=== PATIENT | male | born 1955 | race Caucasian/White ===

== ENCOUNTER 2017-02-11 08:54 | Emergency (ER) | payer BC ==
[2017-02-11] MEDS ORDERED: GI Cocktail Oral Solution 30 ML PO ONE (09:49)
[2017-02-11] MEDS ORDERED: Sodium Chloride 0.9% 1,000 ML IV ONE (09:50)
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
[2017-02-11 10:18] VITALS: BP 124/68
[2017-02-11] MEDS ORDERED: Aspirin 81 MG Tab.Chew PO ONE (11:31)
== END 2017-02-11 11:17 | disposition home or self-care (01) ==
LOC: VM.ED 08:54
DX: K21.9 Gastro-esophageal reflux disease without esophagitis (principal); E78.00 Pure hypercholesterolemia, unspecified; I10 Essential (primary) hypertension; E11.9 Type 2 diabetes mellitus without complications; Z79.82 Long term (current) use of aspirin; Z79.84 Long term (current) use of oral hypoglycemic drugs; Z79.899 Other long term (current) drug therapy
CPT/HCPCS: 36415; 80053; 82550; 83880; 84484; 85025; 85610; 93005; 96360; 99285; A9270; J7030

== ENCOUNTER 2019-01-10 08:22 | Emergency (ER) | payer BC ==
--- NOTE | 2019-01-10 08:36 | EDM.PDOC ---
ED HPI GENERAL MEDICAL PROBLEM - General Chief Complaint: Abdominal Pain Stated Complaint: BACK PAIN Time Seen by Provider: 01/10/19 08:34 Source of Information: Reports: Patient, Family, Old Records, RN, RN Notes Reviewed History Limitations: Reports: No Limitations - History of Present Illness INITIAL COMMENTS - FREE TEXT/NARRATIVE: Patient presents to the ED at [facility] for the evaluation of LLQ abdominal pain. The patient states his pain originally started 3 days ago in his lower back. It has progressively moved to the LLQ and pain steadily got worse. No history of any abdominal problems. Denies any N/V/D. No blood in BM' s. States normal BM's daily. Denies any headaches or dizziness. Denies chest pain or SOB. Back pain has resolved. The pain is sharp and stabbing. No radiation. Tender with even light palpation. Bowel sounds are hypoactive. Left Lower Abdomen Pain Score (Numeric/FACES): 5 - Related Data Allergies Allergy/AdvReac Type Severity Reaction Status Date / Time No Known Allergies Allergy Verified 01/10/19 08:35 Home Meds: Home Meds Aspirin 81 mg PO DAILY 02/11/17 [History] Lisinopril [Prinivil] 20 mg PO DAILY 02/11/17 [History] Pravastatin Sodium 40 mg PO DAILY 02/11/17 [History] metFORMIN [Glucophage] 1,000 mg PO BID 02/11/17 [History] Ciprofloxacin HCl [Cipro] 500 mg PO Q12H 7 Days #14 tablet 01/10/19 [Rx] metroNIDAZOLE [Flagyl] 500 mg PO Q8H 7 Days #21 tab 01/10/19 [Rx] Past Medical History Cardiovascular History: Reports: High Cholesterol, Hypertension Endocrine/Metabolic History: Reports: Diabetes, Type II ED ROS GENERAL - Review of Systems Review Of Systems: See Below Constitutional: Denies: Fever, Chills Respiratory: Denies: Shortness of Breath, Cough Cardiovascular: Denies: Chest Pain, Palpitations GI/Abdominal: Reports: Abdominal Pain. Denies: Diarrhea, Nausea, Vomiting Skin: Reports: No Symptoms Neurological: Reports: No Symptoms ED EXAM, GI/ABD - Physical Exam Exam: See Below Exam Limited By: No Limitations General Appearance: Alert, No Apparent Distress Respiratory/Chest: No Respiratory Distress, Lungs Clear, Normal Breath Sounds Cardiovascular: Normal Peripheral Pulses, Regular Rate, Rhythm GI/Abdominal Exam: Soft, Tender (LLQ), Abnormal Bowel Sounds (Hypoactive x4) Neurological: Alert, Oriented Skin Exam: Warm, Dry, Intact, Normal Color Course - Vital Signs Last Recorded V/S: Last Vital Signs Temp 36.1 C 01/10/19 08:28 Pulse 83 01/10/19 08:28 Resp 18 01/10/19 08:28 BP 138/63 01/10/19 08:28 Pulse Ox 95 01/10/19 08:28 - Orders/Labs/Meds Orders: Active Orders 24 hr Category Date Time Status Sodium Chloride 0.9% [Normal Saline] 1,000 ml Med 01/10/19 09:52 Active IV ONETIME Sodium Chloride 0.9% [Saline Flush] Med 01/10/19 09:51 Active 10 ml FLUSH ASDIRECTED PRN Peripheral IV Insertion Adult [OM.PC] Routine Oth 01/10/19 09:51 Ordered Medication Orders Sodium Chloride (Normal Saline) 1,000 mls @ 999 mls/hr IV ONETIME ONE Stop: 01/10/19 10:52 Sodium Chloride (Saline Flush) 10 ml FLUSH ASDIRECTED PRN PRN Reason: Keep Vein Open Labs: Laboratory Tests 01/10/19 01/10/19 01/10/19 Range/Units 08:47 08:47 09:17 WBC 12.2 H (4.0-10.0) x10^3/uL RBC 4.68 (4.5-6.0) x10^6/uL Hgb 13.8 L (14.0-18.0) g/dL Hct 42.6 (40.0-52.0) % MCV 91.0 (78.0-93.0) fL MCH 29.5 (26.0-32.0) pg MCHC 32.4 (32.0-36.0) g/dL RDW Coeff of Dayne 13.7 (10.0-15.0) % Plt Count 182 (130-400) x10^3/uL Neut % (Auto) 80.5 H (50.0-80.0) % Lymph % (Auto) 9.4 L (25.0-50.0) % [place] % (Auto) 8.9 (2.0-11.0) % Eos % (Auto) 1.0 (0.0-4.0) % Baso % (Auto) 0.2 (0.2-1.2) % Sodium 140 (136-145) mmol/L Potassium 4.0 (3.5-5.1) mmol/L Chloride 104 (98-107) mmol/L Carbon Dioxide 25 (21-32) mmol/L Anion Gap 15.0 (10-20) mmol/L BUN 22 H (7-18) mg/dL Creatinine 1.4 H (0.70-1.30) mg/dL Est Cr Clr Drug Dosing TNP Estimated GFR (MDRD) 51 Glucose 157 H (74-106) mg/dL Calcium 9.1 (8.5-10.1) mg/dL Urine Color Dark yellow H (YELLOW) Urine Appearance Slightly cloudy H (CLEAR) Urine pH 5.5 (5.0-8.0) Ur Specific [place] 1.020 Urine Protein Negative (NEGATIVE) mg/dL Urine Glucose (UA) Negative (NEGATIVE) mg/dL Urine Ketones 15 H (NEGATIVE) mg/dL Urine Occult Blood Negative (NEGATIVE) Urine Nitrite Negative (NEGATIVE) Urine Bilirubin Small H (NEGATIVE) Urine Urobilinogen 0.2 (0.2) EU/dL Ur Leukocyte Esterase Negative (NEGATIVE) Meds: Medications Generic Name Dose Route Start Last Admin Trade Name Freq PRN Reason Stop Dose Admin Sodium Chloride 1,000 mls @ 999 mls/hr 01/10/19 09:52 Normal Saline IV 01/10/19 10:52 ONETIME ONE Sodium Chloride 10 ml 01/10/19 09:51 Saline Flush FLUSH ASDIRECTED PRN Keep Vein Open - Radiology Interpretation Free Text/Narrative:: CT Abd/Pelvis: Acute diverticulitis without complication See scanned document in EMR CT Results Date: 01/10/19 CT Results Time: 09:52 Departure - Departure Time of Disposition: 10:09 Disposition: Home, Self-Care 01 Condition: Good Clinical Impression: Diverticulitis large intestine Qualifiers: Diverticulitis bleeding: without bleeding Diverticulitis complication: without perforation or abscess Qualified Code(s): K57.32 - Diverticulitis of large intestine without perforation or abscess without bleeding - Discharge Information *PRESCRIPTION DRUG MONITORING PROGRAM REVIEWED*: Not Applicable *COPY OF PRESCRIPTION DRUG MONITORING REPORT IN PATIENT MYNOR: Not Applicable Prescriptions: Ciprofloxacin HCl [Cipro] 500 mg PO Q12H 7 Days #14 tablet metroNIDAZOLE [Flagyl] 500 mg PO Q8H 7 Days #21 tab Instructions: Diverticulitis Referrals: Quentin Friend ASSIST[employer] [Primary Care Provider] - Forms: ED Department Discharge Additional Instructions: 1. Stay well hydrated and rest 2. Follow a very bland diet for the next week or so 3. LOTS of water 4. Take medications for the full coarse, even if you are feeling better 5. No changes with any other medications 6. Follow up with PCP as symptoms warrant - Problem List Review Problem List Initiated/Reviewed/Updated: Yes - My Orders Last 24 Hours: My Active Orders 01/10/19 09:51 Sodium Chloride 0.9% [Saline Flush] 10 ml FLUSH ASDIRECTED PRN Peripheral IV Insertion Adult [OM.PC] Routine 01/10/19 09:52 Sodium Chloride 0.9% [Normal Saline] 1,000 ml IV ONETIME - Assessment/Plan Last 24 Hours: My Active Orders 01/10/19 09:51 Sodium Chloride 0.9% [Saline Flush] 10 ml FLUSH ASDIRECTED PRN Peripheral IV Insertion Adult [OM.PC] Routine 01/10/19 09:52 Sodium Chloride 0.9% [Normal Saline] 1,000 ml IV ONETIME Assessment:: Diverticulitis Plan: CT scan and lab results discussed. Will treat for uncomplicated diverticulitis. Discussed proper diet and lots of water. Eat a bland diet for the next few days. See PCP as symptoms warrant.
[2019-01-10 09:06] LABS: CHLORIDE,CL 104 mmol/L (98-107); SODIUM,NA 140 mmol/L (136-145)
[2019-01-10] MEDS ORDERED: Sodium Chloride 0.9% 10 ML Syringe FLUSH PRN (09:51)
[2019-01-10] MEDS ORDERED: Sodium Chloride 0.9% 1,000 ML IV ONE (09:52)
--- NOTE | 2019-01-10 09:55 | CT ---
[id number] CT/CT Abdomen Pelvis WO IV EXAM: ABDOMEN AND PELVIS CT WITHOUT CONTRAST INDICATION: Back pain, flank pain and abdominal pain. COMPARISON: April 17, 2016. DISCUSSION: There are numerous colonic diverticula. Inflammatory changes at the level of the proximal sigmoid colon are consistent with acute diverticulitis. No abscess, free air or other evident complication. There are small nonobstructing bilateral intrarenal calculi. No hydronephrosis or ureteral stone is seen. Interval resolution of right-sided collecting system dilation and passage or removal of right ureteral calculi. Small fat-containing umbilical hernia. Prior left pelvic fixation. Small calcified granuloma in the left lung base. Unenhanced images of the liver, spleen, pancreas, adrenal glands, and small bowel are unremarkable. Degenerative changes are noted in the lower lumbar spine. IMPRESSION: 1. Acute sigmoid diverticulitis without evident complication. Garrison Ty MD 01/10/19 [id number] Thank you for allowing us to participate in the care of your patient.
[2019-01-10 11:15] VITALS: BP 138/78
== END 2019-01-10 11:04 | disposition home or self-care (01) ==
LOC: VM.ED 08:22
DX: K57.32 Diverticulitis of large intestine without perforation or abscess without bleeding (principal); E11.9 Type 2 diabetes mellitus without complications; I10 Essential (primary) hypertension; E78.00 Pure hypercholesterolemia, unspecified; Z79.82 Long term (current) use of aspirin; Z79.84 Long term (current) use of oral hypoglycemic drugs; Z79.899 Other long term (current) drug therapy
CPT/HCPCS: 36415; 74176; 80048; 81003; 85025; 96360; 99284; J7030

== ENCOUNTER 2021-05-08 08:50 | Day surgery (SDC) | payer BC ==
[~2021-05-08 08:50] MED LIST: Lactated Ringers 1,000 ML IV SCH
[2021-05-08] MEDS ORDERED: fentaNYL 100 MCG/2 ML SDV ONE (09:42)
[2021-05-08] MEDS ORDERED: Midazolam 1 MG/ML 2 ML SDV ONE (09:42)
[2021-05-08] MEDS ORDERED: Propofol 200 MG/20 ML SDV ONE (09:42)
[2021-05-08 10:58] VITALS: BP 120/70; PULSE 56
--- NOTE | 2021-05-08 11:26 | OR ---
PREOPERATIVE DIAGNOSIS: Positive FIT test. POSTOPERATIVE DIAGNOSIS: Positive FIT test. PROCEDURE PERFORMED: Colonoscopy. COMPLICATIONS: None. SPECIMENS: None. ESTIMATED BLOOD LOSS: None. PROCEDURE IN DETAIL: This was done in the endoscopy suite. Sedation was given per Anesthesia. He was placed in left lateral position. First, a rectal exam was done and was normal. Scope was introduced into the rectum and slowly advanced to the rectum, sigmoid, descending, transverse, and ascending colon until the cecum was reached. Upon reaching the cecum, scope was slowly withdrawn looking at all mucosal surfaces on the way out. No mucosal abnormalities, lesions, or polyps were noted. He did have scattered sigmoid diverticulosis. FINAL DIAGNOSIS: Sigmoid diverticulosis. BKD: 05/08/2021 10:50:42 MODL: 05/08/2021 11:04:49 /[id number]
== END 2021-05-08 11:40 | disposition home or self-care (01) ==
LOC: VM.SDS 08:50
PROVIDERS: ATTEND Surgery
DX: K57.30 Diverticulosis of large intestine without perforation or abscess without bleeding (principal); G47.33 Obstructive sleep apnea (adult) (pediatric); E11.22 Type 2 diabetes mellitus with diabetic chronic kidney disease; I12.9 Hypertensive chronic kidney disease with stage 1 through stage 4 chronic kidney disease, or unspecified chronic kidney disease; N18.2 Chronic kidney disease, stage 2 (mild); E66.09 Other obesity due to excess calories; E11.69 Type 2 diabetes mellitus with other specified complication; E78.2 Mixed hyperlipidemia; E11.42 Type 2 diabetes mellitus with diabetic polyneuropathy; E11.59 Type 2 diabetes mellitus with other circulatory complications; N52.02 Corporo-venous occlusive erectile dysfunction; Z79.899 Other long term (current) drug therapy; Z79.84 Long term (current) use of oral hypoglycemic drugs; Z68.41 Body mass index [BMI] 40.0-44.9, adult
CPT/HCPCS: 00812; 82947; J2250; J2704; J3010; J7120

== ENCOUNTER 2021-07-05 14:56 | Emergency (ER) | payer BC ==
[2021-07-05] MEDS ORDERED: Sodium Chloride 0.9% 10 ML Syringe FLUSH PRN (15:12)
[2021-07-05] MEDS: Ondansetron 4 MG/2 ML SDV IVPUSH ONE (15:27)
[2021-07-05] MEDS: Morphine 4 MG/ML Syringe IVPUSH ONE (15:27)
--- NOTE | 2021-07-05 15:39 | EDM.PDOC ---
ED HPI GENERAL MEDICAL PROBLEM - General Time Seen by Provider: 07/05/21 15:00 Source of Information: Reports: Patient History Limitations: Reports: No Limitations - History of Present Illness INITIAL COMMENTS - FREE TEXT/NARRATIVE: Pt. presents to mild to moderate intermittent upper abdominal/epigastric pain that started on Saturday. states, however, that pt. often has complaints of abdominal discomfort. He denies any fever or chills. No complaints of chest pain or shortness of breath. He denies any lightheadedness. He is currently not nauseated/vomiting. He states that he has had problems with intermittent difficulty with having a bowel movement. He states that he was also diagnosed previously with an ulcer. It is unclear when he underwent upper endoscopy. He is not currently on any PPI, and denies complaints of acid reflux, acidic taste, chest burning. Pt. recently had a colonoscopy which showed diverticulosis, but no diverticulitis, polyps, or other pathology. He denies any melena, hematochezia, or hematemesis. Onset: Today Onset Date: 07/05/21 Location: Reports: Abdomen, Generalized Middle Abdominal Pain Score (Numeric/FACES): 7 - Related Data Allergies Allergy/AdvReac Type Severity Reaction Status Date / Time No Known Allergies Allergy Verified 07/05/21 16:36 Home Meds: Home Meds Aspirin 81 mg PO DAILY 02/11/17 [History] Lisinopril [Prinivil] 20 mg PO DAILY 02/11/17 [History] Pravastatin Sodium 40 mg PO DAILY 02/11/17 [History] Sildenafil Citrate [Viagra] 25 mg PO DAILY PRN 04/12/21 [History] metFORMIN [Glucophage] 500 mg PO BIDMEALS 04/12/21 [History] Past Medical History Cardiovascular History: Reports: High Cholesterol, Hypertension Respiratory History: Reports: Sleep Apnea Genitourinary History: Reports: Chronic Renal Insuffiency, Other (See Below) Other Genitourinary History: ED Neurological History: Reports: Neuropathy, Diabetic Endocrine/Metabolic History: Reports: Diabetes, Type II, Obesity/BMI 30+ Social & Family History - Caffeine Use Caffeine Use: Reports: Coffee ED ROS GENERAL - Review of Systems Review Of Systems: See Below Constitutional: Reports: No Symptoms HEENT: Reports: No Symptoms Respiratory: Reports: No Symptoms Cardiovascular: Reports: No Symptoms Endocrine: Reports: No Symptoms GI/Abdominal: Reports: Abdominal Pain, Constipation. Denies: Black Stool, Bloody Stool, Diarrhea, Decreased Appetite, Difficulty Swallowing, Distension, Hematemesis, Hematochezia, Melena, Nausea, Vomiting : Reports: No Symptoms Musculoskeletal: Reports: No Symptoms Skin: Reports: No Symptoms Neurological: Reports: No Symptoms Psychiatric: Reports: No Symptoms Hematologic/Lymphatic: Reports: No Symptoms Immunologic: Reports: No Symptoms ED EXAM, GENERAL - Physical Exam Exam: See Below Exam Limited By: No Limitations General Appearance: Alert, WD/WN, No Apparent Distress Respiratory/Chest: No Respiratory Distress, Lungs Clear, Normal Breath Sounds, No Accessory Muscle Use, Chest Non-Tender Cardiovascular: Normal Peripheral Pulses, Regular Rate, Rhythm, No Edema, No Gallop, No JVD Peripheral Pulses: 4+: Radial (L) GI/Abdominal: Normal Bowel Sounds, Soft, No Organomegaly, No Distention, No Mass, Tender (mid upper abdomen). No: Distended, Guarding, Rigid, Rebound, Mass, Hepatomegaly, Splenomegaly (Male) Exam: Deferred Rectal (Males) Exam: Deferred Back Exam: Normal Inspection, Full Range of Motion Extremities: Normal Inspection, Normal Range of Motion, Non-Tender, No Pedal Edema, Normal Capillary Refill Neurological: Alert, Oriented, CN II-XII Intact, Normal Cognition, Normal Gait, Normal Reflexes, No Motor/Sensory Deficits Psychiatric: Normal Affect, Normal Mood Skin Exam: Warm, Dry, Intact, Normal Color, No Rash Lymphatic: No Adenopathy Course - Vital Signs Last Recorded V/S: Last Vital Signs Temp 37.1 C 07/05/21 15:00 Pulse 77 07/05/21 15:00 Resp 16 07/05/21 15:00 BP 143/78 H 07/05/21 15:00 Pulse Ox 97 07/05/21 15:00 - Orders/Labs/Meds Orders: Active Orders 24 hr Category Date Time Status Sodium Chloride 0.9% [Normal Saline] 1,000 ml Med 07/05/21 17:30 Ordered IV ASDIRECTED Sodium Chloride 0.9% [Saline Flush] Med 07/05/21 15:12 Active 10 ml FLUSH ASDIRECTED PRN Peripheral IV Insertion Adult [OM.PC] Routine Oth 07/05/21 15:12 Ordered Medication Orders Sodium Chloride (Normal Saline) 1,000 mls @ 500 mls/hr IV ASDIRECTED MARIBELL Sodium Chloride (Sodium Chloride 0.9% 10 Ml Syringe) 10 ml FLUSH ASDIRECTED PRN PRN Reason: Keep Vein Open Labs: Laboratory Tests 07/05/21 07/05/21 07/05/21 Range/Units 15:00 15:15 15:15 WBC 10.6 H (4.0-10.0) x10^3/uL RBC 5.03 (4.5-6.0) x10^6/uL Hgb 14.8 (14.0-18.0) g/dL Hct 43.6 (40.0-52.0) % MCV 86.7 (78.0-93.0) fL MCH 29.4 (26.0-32.0) pg MCHC 33.9 (32.0-36.0) g/dL RDW Coeff of Dayne 12.9 (10.0-15.0) % Plt Count 202 (130-400) x10^3/uL Immature Gran % (Auto) 0.20 (0.00-0.43) % Neut % (Auto) 76.0 (50.0-80.0) % Lymph % (Auto) 10.3 L (25.0-50.0) % Hyde % (Auto) 7.3 (2.0-11.0) % Eos % (Auto) 5.7 H (0.0-4.0) % Baso % (Auto) 0.5 (0.2-1.2) % Neut # (Auto) 8.0 H (1.8-7.7) x10^3/uL Lymph # (Auto) 1.1 (1.0-4.8) x10^3/uL Hyde # (Auto) 0.8 (0.0-0.8) x10^3/uL Eos # (Auto) 0.6 H (0.0-0.5) x10^3/uL Baso # (Auto) 0.1 (0.0-0.2) x10^3/uL Immature Gran # (Auto) 0.02 (0.00-0.07) x10^3/uL PT 10.4 (9.9-12.5) SEC INR 0.9 L (2.0-3.5) APTT 23.1 L (25.6-32.8) SEC Sodium (136-145) mmol/L Potassium (3.5-5.1) mmol/L Chloride (98-107) mmol/L Carbon Dioxide (21-32) mmol/L Anion Gap (5-15) mmol/L BUN (7-18) mg/dL Creatinine (0.70-1.30) mg/dL Est Cr Clr Drug Dosing Estimated GFR (MDRD) Glucose (70-99) mg/dL Calcium (8.5-10.1) mg/dL Corrected Calcium (8.5-10.1) mg/dL Phosphorus (2.6-4.7) mg/dL Magnesium (1.8-2.4) mg/dL Total Bilirubin (0.2-1.0) mg/dL AST (15-37) U/L ALT (16-63) U/L Alkaline Phosphatase (46-116) U/L C-Reactive Protein (<=0.9) mg/dL Total Protein (6.4-8.2) g/dL Albumin (3.4-5.0) g/dL Globulin Albumin/Globulin Ratio Amylase (25-115) U/L Lipase (73-393) U/L Urine Color Yellow (YELLOW) Urine Appearance Clear (CLEAR) Urine pH 5.5 (5.0-8.0) Ur Specific Monroe >=1.030 Urine Protein Negative (NEGATIVE) mg/dL Urine Glucose (UA) Negative (NEGATIVE) mg/dL Urine Ketones Negative (NEGATIVE) mg/dL Urine Occult Blood Negative (NEGATIVE) Urine Nitrite Negative (NEGATIVE) Urine Bilirubin Negative (NEGATIVE) Urine Urobilinogen 0.2 (0.2) EU/dL Ur Leukocyte Esterase Negative (NEGATIVE) 07/05/21 Range/Units 15:15 WBC (4.0-10.0) x10^3/uL RBC (4.5-6.0) x10^6/uL Hgb (14.0-18.0) g/dL Hct (40.0-52.0) % MCV (78.0-93.0) fL MCH (26.0-32.0) pg MCHC (32.0-36.0) g/dL RDW Coeff of Dayne (10.0-15.0) % Plt Count (130-400) x10^3/uL Immature Gran % (Auto) (0.00-0.43) % Neut % (Auto) (50.0-80.0) % Lymph % (Auto) (25.0-50.0) % Hyde % (Auto) (2.0-11.0) % Eos % (Auto) (0.0-4.0) % Baso % (Auto) (0.2-1.2) % Neut # (Auto) (1.8-7.7) x10^3/uL Lymph # (Auto) (1.0-4.8) x10^3/uL Hyde # (Auto) (0.0-0.8) x10^3/uL Eos # (Auto) (0.0-0.5) x10^3/uL Baso # (Auto) (0.0-0.2) x10^3/uL Immature Gran # (Auto) (0.00-0.07) x10^3/uL PT (9.9-12.5) SEC INR (2.0-3.5) APTT (25.6-32.8) SEC Sodium 143 (136-145) mmol/L Potassium 4.0 (3.5-5.1) mmol/L Chloride 107 (98-107) mmol/L Carbon Dioxide 25 (21-32) mmol/L Anion Gap 15.0 (5-15) mmol/L BUN 21 H (7-18) mg/dL Creatinine 1.2 (0.70-1.30) mg/dL Est Cr Clr Drug Dosing TNP Estimated GFR (MDRD) > 60 Glucose 110 H (70-99) mg/dL Calcium 8.6 (8.5-10.1) mg/dL Corrected Calcium 8.8 (8.5-10.1) mg/dL Phosphorus 3.4 (2.6-4.7) mg/dL Magnesium 1.9 (1.8-2.4) mg/dL Total Bilirubin 1.3 H (0.2-1.0) mg/dL AST 14 L (15-37) U/L ALT 21 (16-63) U/L Alkaline Phosphatase 69 (46-116) U/L C-Reactive Protein < 0.2 (<=0.9) mg/dL Total Protein 6.9 (6.4-8.2) g/dL Albumin 3.8 (3.4-5.0) g/dL Globulin 3.1 Albumin/Globulin Ratio 1.23 Amylase 34 (25-115) U/L Lipase 67 L (73-393) U/L Urine Color (YELLOW) Urine Appearance (CLEAR) Urine pH (5.0-8.0) Ur Specific Monroe Urine Protein (NEGATIVE) mg/dL Urine Glucose (UA) (NEGATIVE) mg/dL Urine Ketones (NEGATIVE) mg/dL Urine Occult Blood (NEGATIVE) Urine Nitrite (NEGATIVE) Urine Bilirubin (NEGATIVE) Urine Urobilinogen (0.2) EU/dL Ur Leukocyte Esterase (NEGATIVE) Meds: Medications Generic Name Dose Route Start Last Admin Trade Name Freq PRN Reason Stop Dose Admin Sodium Chloride 1,000 mls @ 500 mls/hr 07/05/21 17:30 Normal Saline IV ASDIRECTED MARIBELL Sodium Chloride 10 ml 07/05/21 15:12 Sodium Chloride 0.9% 10 Ml Syringe FLUSH ASDIRECTED PRN Keep Vein Open Discontinued Medications Generic Name Dose Route Start Last Admin Trade Name Freq PRN Reason Stop Dose Admin Morphine Sulfate 4 mg 07/05/21 15:19 07/05/21 15:27 Morphine 4 Mg/Ml Syringe IVPUSH 07/05/21 15:20 4 mg ONETIME ONE Administration Ondansetron HCl 4 mg 07/05/21 15:19 07/05/21 15:27 Ondansetron 4 Mg/2 Ml Sdv IVPUSH 07/05/21 15:20 4 mg ONETIME ONE Administration - Radiology Interpretation Free Text/Narrative:: Contrast CT of abdomen and pelvis was obtained. No acute process was identified. No free air, adenopathy or bowel thickening noted. Aorta was within normal limits. Departure - Departure Time of Disposition: 17:32 Disposition: Home, Self-Care 01 Clinical Impression: Abdominal pain - Discharge Information Instructions: Encopresis, Constipation, Adult Referrals: Quentin Friend NP [Primary Care Provider] - Forms: ED Department Discharge Additional Instructions: No life-threatening findings were identified today. Start miralax 17 gm (1 capful) daily. Increase your consumption of water. If you are still having discomfort, follow-up in clinic, or return to ER if worsening discomfort, fever, chills, or bleeding. Sepsis Event Note (ED) - Focused Exam Vital Signs: Vital Signs Temp Pulse Resp BP Pulse Ox 07/05/21 15:00 37.1 C 77 16 143/78 H 97 - Problem List Review Problem List Initiated/Reviewed/Updated: Yes - My Orders Last 24 Hours: My Active Orders 07/05/21 15:12 Sodium Chloride 0.9% [Saline Flush] 10 ml FLUSH ASDIRECTED PRN Peripheral IV Insertion Adult [OM.PC] Routine 07/05/21 17:30 Sodium Chloride 0.9% [Normal Saline] 1,000 ml IV ASDIRECTED - Assessment/Plan Last 24 Hours: My Active Orders 07/05/21 15:12 Sodium Chloride 0.9% [Saline Flush] 10 ml FLUSH ASDIRECTED PRN Peripheral IV Insertion Adult [OM.PC] Routine 07/05/21 17:30 Sodium Chloride 0.9% [Normal Saline] 1,000 ml IV ASDIRECTED Plan: Discussed findings with patient. Based on history of problems with having a bowel movement intermittently, constipation is certainly a possible cause for the discomfort. At this point, advised increasing consumption of water (urine spec gravity was 1.030) and trying some miralax. Pt. advised that, although no life-threatening pathology was noted, he may need further workup to determine cause of the discomfort, including but not limited to repeat colonoscopy, EGD, ex lap, ext, ultrasound, etc. Certainly return to ER if he has worsening discomfort, fever, chills, lightheadedness, chest pain, or shortness of breath. Otherwise, follow-up in clinic in 7-10 days.
[2021-07-05 15:42] LABS: CHLORIDE,CL 107 mmol/L (98-107); SODIUM,NA 143 mmol/L (136-145)
[2021-07-05 15:45] LABS: PTT,PARTIAL THROMBOPLSTIN TIME 23.1 SEC (25.6-32.8)
[2021-07-05 16:45] VITALS: BP 143/78; PULSE 77
--- NOTE | 2021-07-05 17:18 | CT ---
[id number] CT/CT Abdomen Pelvis W IV EXAM: CT Abdomen Pelvis W IV CLINICAL DATA: ABDOMINAL PAIN COMPARISON: CORRELATION IS MADE WITH THE CAT SCAN OF JANUARY 10, 2019 FINDINGS: The liver and spleen are unremarkable. The kidneys and adrenals show no abnormality. The aorta and pancreas are within normal limits. There is no bowel distention. There is no bowel wall thickening either. There is no free fluid or free air. There is no adenopathy. The pelvis shows no mass, free fluid, abscess, inflammatory change, or adenopathy. IMPRESSION: NO ACUTE PROCESS. Moises Solorzano MD 07/05/21 [id number] Thank you for allowing us to participate in the care of your patient.
[2021-07-05] MEDS ORDERED: Sodium Chloride 0.9% 1,000 ML IV SCH (17:30)
== END 2021-07-05 17:40 | disposition home or self-care (01) ==
LOC: VM.ED 14:56
DX: R10.13 Epigastric pain (principal); I12.9 Hypertensive chronic kidney disease with stage 1 through stage 4 chronic kidney disease, or unspecified chronic kidney disease; E11.22 Type 2 diabetes mellitus with diabetic chronic kidney disease; N18.9 Chronic kidney disease, unspecified; E11.40 Type 2 diabetes mellitus with diabetic neuropathy, unspecified; E66.9 Obesity, unspecified; Z68.41 Body mass index [BMI] 40.0-44.9, adult; Z79.82 Long term (current) use of aspirin; Z79.84 Long term (current) use of oral hypoglycemic drugs; Z79.899 Other long term (current) drug therapy
CPT/HCPCS: 74177; 80053; 81003; 82150; 83690; 83735; 84100; 85025; 85610; 85730; 86140; 96374; 96375; 99284; 99284-25; J2270; J2405

== ENCOUNTER 2025-02-28 10:37 | Emergency (ER) | payer MEDICARE, BC ==
[2025-02-28] MEDS ORDERED: Sodium Chloride 0.9% 10 ML Syringe FLUSH PRN (10:56)
[2025-02-28 11:05] LABS: BASOPHILS PERCENT AUTO 0.4 % (0.2-1.2); EOSINOPHILS ABSOLUTE AUTO 0.1 x10^3/uL (0.0-0.5); HEMATOCRIT 44.1 % (40.0-52.0); HEMOGLOBIN 14.8 g/dL (14.0-18.0); IMMATURE GRAN ABSOLUTE AUTO 0.02 x10^3/uL (0.00-0.07); LYMPHOCYTES ABSOLUTE AUTO 0.8 x10^3/uL (1.0-4.8); LYMPHOCYTES PERCENT AUTO 9.8 % (25.0-50.0); MEAN CORPUSCULAR HEMOGLOBIN 29.7 pg (26.0-32.0); MEAN CORPUSCULAR HGB CONC 33.6 g/dL (32.0-36.0); MEAN CORPUSCULAR VOLUME 88.6 fL (78.0-93.0); MONOCYTES ABSOLUTE AUTO 0.4 x10^3/uL (0.0-0.8); MONOCYTES PERCENT AUTO 4.8 % (2.0-11.0); NEUTROPHILS ABSOLUTE AUTO 6.8 x10^3/uL (1.8-7.7); NEUTROPHILS PERCENT AUTO 83.8 % (50.0-80.0); PLATELET COUNT,PLT 188 x10^3/uL (130-400); RED BLOOD CELL COUNT 4.98 x10^6/uL (4.5-6.0); WHITE BLOOD CELL COUNT,WBC 8.2 x10^3/uL (4.0-10.0)
[2025-02-28 11:05] LABS: APPEARANCE,URINE SLIGHTLY CLOUDY (CLEAR); BILIRUBIN,URINE NEGATIVE (NEGATIVE); COLOR,URINE YELLOW (YELLOW); GLUCOSE,URINE NEGATIVE (NEGATIVE); KETONES,URINE TRACE mg/dL (NEGATIVE); LEUKOCYTE ESTERASE,URINE NEGATIVE (NEGATIVE); NITRITE,URINE NEGATIVE (NEGATIVE); OCCULT BLOOD,URINE LARGE (NEGATIVE); PROTEIN,URINE 30 mg/dL (NEGATIVE); UROBILINOGEN,URINE 0.2 EU/dL (0.2)
[2025-02-28] MEDS: Ondansetron 4 MG/2 ML SDV IVPUSH ONE (11:05)
[2025-02-28] MEDS: HYDROmorphone 1 MG/ML Syringe IVPUSH ONE (11:07)
[2025-02-28 11:12] LABS: BACTERIA,URINE FEW /HPF (NOT SEEN); MUCUS,URINE RARE /LPF (NOT SEEN); RBC,URINE 40-50 /HPF (NOT SEEN); SQUAMOUS EPITHELIAL CELLS,UR RARE /HPF (NOT SEEN); WBC,URINE 0-5 /HPF (NOT SEEN)
[2025-02-28 11:25] LABS: ALANINE AMINOTRANSFERASE,ALT 19 U/L (16-63); ALBUMIN 3.9 g/dL (3.4-5.0); ALKALINE PHOSPHATASE 65 U/L (46-116); ANION GAP 13.6 mmol/L (5-15); ASPARTATE AMNIOTRANSFERASE,AST 16 U/L (15-37); BILIRUBIN TOTAL 1.3 mg/dL (0.2-1.0); BLOOD UREA NITROGEN,BUN 19 mg/dL (7-18); CALCIUM 8.6 mg/dL (8.5-10.1); CARBON DIOXIDE,CO2 27 mmol/L (21-32); CHLORIDE,CL 104 mmol/L (98-107); CREATININE 1.7 mg/dL (0.70-1.30); ESTIMATED GFR 43 mL/min (>=60); GLUCOSE RANDOM 134 mg/dL (70-99); POTASSIUM,K 4.6 mmol/L (3.5-5.1); PROTEIN TOTAL,TP 6.9 g/dL (6.4-8.2); SODIUM,NA 140 mmol/L (136-145)
[2025-02-28] MEDS: Tamsulosin 0.4 MG Cap.ER PO ONE (13:25)
[2025-02-28] MEDS: Take Home: Acetaminophen/HYDROcodone 325-10 MG, 5 Tab Pack PO ONE (13:25)
[2025-02-28 13:55] VITALS: BP 128/77; PULSE 74
== END 2025-02-28 13:31 | disposition home or self-care (01) ==
LOC: VM.ED 10:37
DX: N13.2 Hydronephrosis with renal and ureteral calculous obstruction (principal); I10 Essential (primary) hypertension; I12.9 Hypertensive chronic kidney disease with stage 1 through stage 4 chronic kidney disease, or unspecified chronic kidney disease; N18.9 Chronic kidney disease, unspecified; E78.00 Pure hypercholesterolemia, unspecified; E11.22 Type 2 diabetes mellitus with diabetic chronic kidney disease; Z79.82 Long term (current) use of aspirin
CPT/HCPCS: 74176; 80053; 81001; 85025; 96374; 96375; 99284; 99284-25; A9270-GY; J1171; J2405

== ENCOUNTER 2025-07-13 22:47 | Emergency (ER) | payer MEDICARE, BC ==
[2025-07-13] MEDS ORDERED: Sodium Chloride 0.9% 10 ML Syringe FLUSH PRN (22:54)
[2025-07-13] MEDS: Ondansetron 4 MG/2 ML SDV IVPUSH ONE (23:00)
[2025-07-13] MEDS: Ketorolac 15 MG/ML SDV IVPUSH ONE (23:00)
[2025-07-13 23:05] LABS: BASOPHILS ABSOLUTE AUTO 0.0 x10^3/uL (0.0-0.2); BASOPHILS PERCENT AUTO 0.4 % (0.2-1.2); EOSINOPHILS ABSOLUTE AUTO 0.1 x10^3/uL (0.0-0.5); EOSINOPHILS PERCENT AUTO 1.2 % (0.0-4.0); IMMATURE GRAN ABSOLUTE AUTO 0.02 x10^3/uL (0.00-0.07); IMMATURE GRAN PERCENT AUTO 0.20 % (0.00-0.43); LYMPHOCYTES ABSOLUTE AUTO 1.2 x10^3/uL (1.0-4.8); LYMPHOCYTES PERCENT AUTO 10.9 % (25.0-50.0); MONOCYTES ABSOLUTE AUTO 0.8 x10^3/uL (0.0-0.8); MONOCYTES PERCENT AUTO 7.0 % (2.0-11.0); NEUTROPHILS ABSOLUTE AUTO 9.1 x10^3/uL (1.8-7.7); NEUTROPHILS PERCENT AUTO 80.3 % (50.0-80.0); PLATELET COUNT,PLT 229 x10^3/uL (130-400); RED BLOOD CELL COUNT 4.77 x10^6/uL (4.5-6.0); WHITE BLOOD CELL COUNT,WBC 11.3 x10^3/uL (4.0-10.0)
[2025-07-13 23:09] LABS: APPEARANCE,URINE CLEAR (CLEAR); GLUCOSE,URINE NEGATIVE (NEGATIVE); OCCULT BLOOD,URINE MODERATE (NEGATIVE)
[2025-07-13 23:16] LABS: SQUAMOUS EPITHELIAL CELLS,UR RARE /HPF (NOT SEEN)
[2025-07-13 23:24] LABS: A/G RATIO 1.06; ALANINE AMINOTRANSFERASE,ALT 21.0 U/L (16-63); ASPARTATE AMNIOTRANSFERASE,AST 15.0 U/L (15-37); BILIRUBIN TOTAL 1.3 mg/dL (0.2-1.0); BLOOD UREA NITROGEN,BUN 18.0 mg/dL (7-18); CARBON DIOXIDE,CO2 27.0 mmol/L (21-32); CHLORIDE,CL 103.0 mmol/L (98-107); CREATININE 1.5 mg/dL (0.70-1.30); EST CRCL DRUG DOSING (CG) 51.01 mL/min; ESTIMATED GFR 50.0 mL/min (>=60); GLUCOSE RANDOM 141.0 mg/dL (70-99); POTASSIUM,K 4.1 mmol/L (3.5-5.1); PROTEIN TOTAL,TP 7.2 g/dL (6.4-8.2); SODIUM,NA 140.0 mmol/L (136-145)
[2025-07-14 00:12] VITALS: BP 125/61; PULSE 74
== END 2025-07-14 00:30 | disposition home or self-care (01) ==
LOC: VM.ED 22:47
DX: N13.2 Hydronephrosis with renal and ureteral calculous obstruction (principal); I12.9 Hypertensive chronic kidney disease with stage 1 through stage 4 chronic kidney disease, or unspecified chronic kidney disease; N18.9 Chronic kidney disease, unspecified; E78.00 Pure hypercholesterolemia, unspecified; E66.9 Obesity, unspecified; E11.22 Type 2 diabetes mellitus with diabetic chronic kidney disease; Z79.82 Long term (current) use of aspirin; Z79.84 Long term (current) use of oral hypoglycemic drugs; Z79.899 Other long term (current) drug therapy; Z68.38 Body mass index [BMI] 38.0-38.9, adult
CPT/HCPCS: 74176; 80053; 81001; 85025; 96361; 96374; 96375; 99284; 99284-25; J1885; J2405; J7030